=== PATIENT | female | born 1965 ===

== ENCOUNTER 2017-12-16 10:30 | Observation (INO) | payer MEDICAID, SELFPAY ==
[2017-12-16] MEDS ORDERED: Sodium Chloride 0.9% 1,000 ML IV STA (11:10)
--- NOTE | 2017-12-16 11:15 | ED PDOC ---
HPI: General Adult Time Seen by Provider: 12/16/17 10:57 Chief Complaint (Nursing): Fever History Per: Patient Onset/Duration Of Symptoms: Days (2) Current Symptoms Are (Timing): Still Present Severity: Moderate Additional Complaint(s): Dysuria, frequency assoc with fever and right flank pain x 2 days. Denies vomiting. S/p right kidney transplant on immunosuppressive meds. Past Medical History Vital Signs: Last Vital Signs Temp 99.2 F 12/16/17 10:51 Pulse 94 H 12/16/17 10:51 Resp 16 12/16/17 10:51 BP 130/84 12/16/17 10:51 Pulse Ox 100 12/16/17 11:16 - Medical History PMH: Anemia, Anxiety, Depression, HTN, Hypercholesterolemia, Pancreatitis - Surgical History Other surgeries: S/p kidney transplant - Family History Family History: States: Unknown Family Hx - Home Medications Home Medications: Ambulatory Orders Medication Instructions Recorded Atorvastatin [Lipitor] 40 mg PO HS 02/28/15 Certican 0.75 mg PO DAILY 02/28/15 Mycophenolate Sodium [Myfortic] 360 mg PO DAILY 02/28/15 Pancreatina 200 mg PO TID 02/28/15 Prednisone 5 mg PO QOTHERDAY 02/28/15 Semeticona 100 mg PO TID 02/28/15 Cephalexin [Keflex] 500 mg PO BID #14 cap 08/11/15 - Allergies Allergies/Adverse Reactions: Allergies Allergy/AdvReac Type Severity Reaction Status Date / Time No Known Allergies Allergy Verified 12/16/17 10:51 Review of Systems ROS Statement: Except As Marked, All Systems Reviewed And Found Negative Constitutional: Positive for: Fever Gastrointestinal: Positive for: Abdominal Pain Genitourinary Female: Positive for: Dysuria, Frequency Musculoskeletal: Positive for: Back Pain Physical Exam - Physical Exam Appears: Positive for: Non-toxic, No Acute Distress Skin: Positive for: Normal Color, Warm, DRY Cardiovascular/Chest: Positive for: Regular Rate, Rhythm Respiratory: Positive for: CNT, Normal Breath Sounds Gastrointestinal/Abdominal: Positive for: Bowel Sounds, Soft. Negative for: Tenderness Back: Positive for: Normal Inspection. Negative for: L CVA Tenderness, R CVA Tenderness Extremity: Positive for: Normal ROM Neurologic/Psych: Positive for: Alert, Oriented - Laboratory Results Result Diagrams: 12/16/17 11:40 12/16/17 11:40 - ECG O2 Sat by Pulse Oximetry: 100 Disposition - Clinical Impression Clinical Impression: Pyelonephritis, UTI (urinary tract infection) - Patient ED Disposition Is Patient to be Admitted: Yes - Disposition Disposition Time: 14:05 Condition: FAIR Forms: [facility] (Georgian) - Pt Status Changed To: Hospital Disposition Of: Observation - POA Present On Arrival: None
[2017-12-16 11:56] LABS: VENOUS BLOOD GAS BASE EXCESS -2.7 mmol/L (0.0-2.0); VENOUS BLOOD GAS PCO2 31 mmHg (40-60); VENOUS BLOOD GAS PO2 39 mm/Hg (30-55); VENOUS BLOOD PH 7.43 (7.32-7.43)
[2017-12-16] MEDS ORDERED: cefTRIAXone (Rocephin) 1 gm Inj ONE (11:59)
[2017-12-16 12:06] LABS: BASO # 0.1 K/uL (0.0-0.2); BASO % 0.5 % (0.0-2.0); EOS # 0.1 K/uL (0.0-0.7); EOS % 0.5 % (0.0-4.0); HEMOGLOBIN 10.3 g/dL (12.0-16.0); LYMPH # 1.1 K/uL (1.0-4.3); LYMPH % 8.8 % (20.0-40.0); MEAN CELL VOLUME 84.7 fl (81.0-99.0); MEAN CORPUSCULAR HEMOGLOBIN 27.3 pg (27.0-31.0); MEAN CORPUSCULAR HGB CONC 32.3 g/dL (33.0-37.0); MEAN PLATELET VOLUME 9.5 fl (7.2-11.7); MONO # 1.7 K/uL (0.0-0.8); MONO % 13.7 % (0.0-10.0); NEUT # 9.6 K/uL (1.8-7.0); NEUT % 76.5 % (50.0-75.0); NRBC % 0.7 % (0.0-0.0); PLATELET COUNT 227 K/uL (130-400); RBC 3.77 Mil/uL (3.80-5.20); RED CELL DISTRIBUTION WIDTH 13.2 % (11.5-14.5); WHITE BLOOD COUNT 12.6 K/uL (4.8-10.8)
[2017-12-16 12:17] LABS: ALBUMIN 3.9 g/dL (3.5-5.0); CALCIUM 9.4 mg/dL (8.4-10.2)
--- NOTE | 2017-12-16 12:49 | CT ---
PROCEDURE: CT Abdomen and Pelvis without intravenous contrast HISTORY: pyelo s/p kidney transplant COMPARISON: 04/08/2014 TECHNIQUE: Without contrast.. Contrast Dose: 0 Radiation dose: Total exam DLP = 705.37 mGy-cm. This CT exam was performed using one or more of the following dose reduction techniques: Automated exposure control, adjustment of the mA and/or kV according to patient size, and/or use of iterative reconstruction technique. FINDINGS: LOWER THORAX: Unremarkable. LIVER: Unremarkable. No gross lesion or ductal dilatation. GALLBLADDER AND BILE DUCTS: Unremarkable. PANCREAS: Unremarkable. No gross lesion or ductal dilatation. SPLEEN: Unremarkable. ADRENALS: Unremarkable. No mass. KIDNEYS AND URETERS: Bilateral severely atrophic north fork kidneys. Transplant kidney in right pelvis. Minimal transplant hydroureteronephrosis. No mass or calculus. No perinephric fluid. Trace perinephric stranding common nonspecific. VASCULATURE: Unremarkable. No aortic aneurysm. BOWEL: Unremarkable. No obstruction. No gross mural thickening. APPENDIX: Unremarkable. Normal appendix. PERITONEUM: Unremarkable. No free fluid. No free air. LYMPH NODES: Unremarkable. No enlarged lymph nodes. BLADDER: Unremarkable. REPRODUCTIVE: Status post hysterectomy BONES: No acute fracture. OTHER FINDINGS: None. IMPRESSION: Atrophic north fork kidneys. Transplant kidney in right pelvis with mild hydroureteronephrosis and trace perinephric stranding common nonspecific. Otherwise unremarkable examination.
[2017-12-16 12:52] LABS: LYMPHOCYTE 10 % (20-50); MONOCYTE 12 % (0-10); NEUTROPHIL 78 % (42-75); PLATELET ESTIMATE NORMAL (NORMAL); TOTAL CELLS COUNTED 100
[2017-12-16 13:39] LABS: SQUAMOUS EPITHIAL 1 /hpf (0-5); URINE BACTERIA RARE (<OCC); URINE BILIRUBIN NEGATIVE (NEGATIVE); URINE BLOOD MODERATE (NEGATIVE); URINE CLARITY CLEAR (Clear); URINE COLOR STRAW (YELLOW); URINE GLUCOSE (UA) NEG (Normal); URINE LEUKOCYTE ESTERASE LARGE Leu/uL (Negative); URINE NITRATE NEGATIVE (NEGATIVE); URINE PROTEIN NEGATIVE (NEGATIVE); URINE UROBILINOGEN 0.2-1.0 mg/dL (0.2-1.0)
[2017-12-16] MEDS: MYCOPHENOLATE SODIUM PO SCH (21:00)
[2017-12-16] MEDS ORDERED: EVEROLIMUS PO SCH ×2 (21:19→21:25)
[2017-12-16] MEDS ORDERED: EVEROLIMUS PO ONE (22:24)
[2017-12-17 06:37] LABS: HEMOGLOBIN 10.4 g/dL (12.0-16.0); MEAN CELL VOLUME 84.9 fl (81.0-99.0); MEAN CORPUSCULAR HEMOGLOBIN 28.3 pg (27.0-31.0); MEAN CORPUSCULAR HGB CONC 33.3 g/dL (33.0-37.0); RBC 3.68 Mil/uL (3.80-5.20); RED CELL DISTRIBUTION WIDTH 13.5 % (11.5-14.5); WHITE BLOOD COUNT 8.6 K/uL (4.8-10.8)
[2017-12-17 06:50] LABS: ALBUMIN 3.8 g/dL (3.5-5.0); CALCIUM 9.4 mg/dL (8.4-10.2)
[2017-12-17 08:32] VITALS: TEMP 97.8; O2SAT 99
[2017-12-17] MEDS ORDERED: cefTRIAXone 2 GM in Sodium Chloride 0.9% 100 ML IVPB SCH (09:00)
[2017-12-17] MEDS ORDERED: MYCOPHENOLATE SODIUM 360 MG PO SCH (09:00)
[2017-12-17] MEDS ORDERED: PREDNISONE 5 MG PO SCH (09:00)
[2017-12-17] MEDS ORDERED: [UNRECOGNIZED DRUG - OTHER] PO SCH (09:00)
[2017-12-17] MEDS ORDERED: Enoxaparin 40 mg Syringe SC SCH (09:00)
[2017-12-17] MEDS ORDERED: EVEROLIMUS PO SCH ×2 (09:00)
[2017-12-17] MEDS: MYCOPHENOLATE SODIUM PO SCH (09:05)
--- NOTE | 2017-12-17 15:12 | CP.PCM.PCO ---
Assessment/Plan - Assessment/Plan Assessment (Free Text): Pt stable, denies flank/abdominal pain. WBC down to 8.6, pt without fevers, denies cp,sob,f,c,n,v. Pt seen and cleared for d/c home by Dr. Londono. Spoke with Dr. Cobb, pt's transplant rn advanced in [place] who states pt's baseline cr is 1.5-1.8. He feels with the CT scan report, the patient can be discharged and follow up in the office. Pt and pt's daughter made aware. Per Dr. Londono, PO abx with Vantin, crcl verified with Brayden in pharmacy is 33.2. Rx for Vantin 100mg po q12hr given. Pt to f/u with rn advanced in 1 week.
[2017-12-17 16:12] VITALS: BP 112/77; PULSE 85; RESP 20
--- NOTE | 2017-12-17 21:59 | HP ---
CHIEF COMPLAINT: Fever. HISTORY OF PRESENT ILLNESS: This is a 52-year-old female known case of hypertension, elevated cholesterol, pancreatitis, anxiety, and depression, who is also status post kidney transplant, was having high fever associated with dysuria and right flank pain for which the patient was treated with antibiotic as an outpatient, but symptoms did not resolve, so the patient came to emergency room and was admitted for observation for UTI and possible pyelonephritis. Currently, the patient feels better. Denies any fever, chest pain, shortness of breath, nausea, vomiting, diarrhea, constipation, any knee or joint or extremity pain or any abdominal pain. Right flank pain also is resolved. PAST MEDICAL HISTORY: Significant for hypertension, elevated cholesterol, history of pancreatitis, history of depression, anxiety, anemia, and history of renal failure leading to kidney transplant. PAST SURGICAL HISTORY: Remarkable for kidney transplant. PERSONAL HISTORY: The patient is currently nonsmoker and nondrinker. No substance abuse. MEDICATIONS: The patient is on multiple medications, which is as per reconciliation sheet, which was reviewed and ordered. ALLERGIES: THE PATIENT IS NOT ALLERGIC TO ANY MEDICATIONS. FAMILY HISTORY: Noncontributory. PHYSICAL EXAMINATION: GENERAL: A well-built and well-nourished 52-year-old female, in no acute distress. VITAL SIGNS: Temperature 97.8, pulse 83, respirations 18, and blood pressure 107/68. HEENT: Pupils reacting to light. No JVD. No thyromegaly. No lymphadenopathy. No nystagmus. Normocephalic and atraumatic skull. HEART: S1 and S2 normal and regular. No significant murmur, gallop or rub is heard. LUNGS: Shows good bilateral air exchange. No rales or rhonchi. ABDOMEN: Soft and nontender. No organomegaly. No fluid. Bowel sounds are present and normal. No sign of acute abdomen. No guarding. No rigidity. No rebound. No costovertebral tenderness. EXTREMITIES: No edema. No calf swelling. No tenderness. No acute ischemia. CENTRAL NERVOUS SYSTEM: Essentially unchanged. There is no sign of any acute gross focal motor or sensory neurological deficit. DIAGNOSTIC DATA: Available diagnostic data reviewed. WBC was 12.6, which is now down to 8.6, hemoglobin 10.3, which is now 10.4, hematocrit 31.9, which is now 31.3, and platelets are 227 and 234. Lactic acid level was normal. Venous blood gas was acceptable. SMA-12 and chemistries were unremarkable. Lipase level was 210. Vitamin B12 and TSH levels are acceptable. Urinalysis was negative. Urine culture showed multiple species with contamination. CAT scan of abdomen was showing atrophic kidney and transplant kidney and right pelvis, right hydroureter and nephrosis - perinephric stranding, common and nonspecific. These results were discussed with the patient's transplant surgeon and were not any significant. The patient is clinically stable. ADMITTING IMPRESSION: Questionable pyelonephritis and urinary tract infection, status post kidney transplant, hypertension, elevated cholesterol, anxiety, depression, and anemia. The patient is medically stable. We will discharge the patient. The patient will be followed up by transplant surgeon. Case and plan was discussed with transplant surgeon and the patient. Discharge planning was explained to the patient. Ruben Londono MD
== END 2017-12-17 16:25 | disposition home or self-care (01) ==
LOC: EDBD 10:30 → H.ER 10:30 → H.ERHOLD 14:04 → H.MEDSURG1 16:35
PROVIDERS: ADMIT Internal Medicine; ATTEND Internal Medicine
DX: N39.0 Urinary tract infection, site not specified (principal); Z94.0 Kidney transplant status; I10 Essential (primary) hypertension; E78.00 Pure hypercholesterolemia, unspecified; F41.9 Anxiety disorder, unspecified; D64.9 Anemia, unspecified; F32.9 Major depressive disorder, single episode, unspecified
CPT/HCPCS: 36415; 74176; 80053; 80061; 81003; 82607; 82803; 83690; 84443; 85025; 85027; 87040; 87086; 99283; G0378; J0696; J7040